=== PATIENT | male | born 1985 | race African-American/Black ===

== ENCOUNTER 2016-12-09 15:50 | Emergency (ER) | payer BC ==
[~2016-12-09] VITALS: Ht 170.2 cm; Wt 69.5 kg
[2016-12-09 15:51] VITALS: BP 119/75
[2016-12-09] MEDS ORDERED: [UNRECOGNIZED DRUG - OTHER] (16:11)
[2016-12-09] MEDS ORDERED: SOMA250T PO (16:11)
[2016-12-09] MEDS ORDERED: [UNRECOGNIZED DRUG - OTHER] (16:11)
[2016-12-09] MEDS ORDERED: VALI5TAB PO (16:14)
[2016-12-09] MEDS ORDERED: OXYC-403 PO (16:14)
[2016-12-09] MEDS ORDERED: ROBA500T PO (16:45)
[2016-12-09] MEDS ORDERED: IBUPROFEN 800 MG TAB PO ONE (16:45)
[2016-12-09] MEDS ORDERED: METHOCARBAMOL 500 MG TAB PO ONE (16:45)
== END 2016-12-09 16:54 | disposition home or self-care (01) ==
LOC: M ED 15:50
DX: S39.012A Strain of muscle, fascia and tendon of lower back, initial encounter (principal); S16.1XXA Strain of muscle, fascia and tendon at neck level, initial encounter; X50.0XXA Overexertion from strenuous movement or load, initial encounter; Y92.9 Unspecified place or not applicable; Y93.89 Activity, other specified; Y99.8 Other external cause status; G89.29 Other chronic pain; F17.200 Nicotine dependence, unspecified, uncomplicated; Z90.49 Acquired absence of other specified parts of digestive tract; Z79.899 Other long term (current) drug therapy